=== PATIENT | male | born 2000 | race Two or more races ===

== ENCOUNTER 2022-11-24 20:08 | Emergency (ER) | payer OTHER ==
[~2022-11-24] VITALS: Ht 182.9 cm; Wt 94.3 kg
[2022-11-24 20:17] VITALS: BP 132/70
== END 2022-11-25 00:15 | disposition home or self-care (01) ==
LOC: ER 20:08
DX: R60.9 Edema, unspecified (principal); Z90.49 Acquired absence of other specified parts of digestive tract
CPT/HCPCS: 93970; 99284